=== PATIENT | male | born 1995 | race Caucasian/White ===

== ENCOUNTER 2016-09-10 12:03 | Emergency (ER) | payer MEDICAID, OTHER ==
[~2016-09-10] VITALS: Wt 75.0 kg
[2016-09-10] MEDS ORDERED: IBUPROFEN 800 MG TAB PO ONE (13:30)
--- NOTE | 2016-09-10 13:54 | ERD ---
ER Documentation Chief Complaint Date/Time DATE: 09/10/16 TIME: 13:51 Chief Complaint CHEST WALL PAIN FOR 2 MONTHS WITH COUGH FOR 2 MOS . NO DISTRESS HPI 21-year-old male with no past medical history who presents the emergency room with chest wall pain. He describes approximately 1 month of cough that is dry nonproductive and persistent that has been waxing and waning. Today he noted some chest wall pain that slightly radiated to his left shoulder. He denied any pleuritic pain, no fevers or chills, no exertional symptoms. No near syncope. He took an aspirin because he was scared and presented to the emergency room. He is asymptomatic, symptoms lasted approximately 1 hour. Patient has no family history of sudden no family history of early cardiac disease. He is otherwise well-appearing. ROS All systems reviewed and are negative except as per history of present illness. Medications Home Meds Active Scripts Albuterol Sulfate* (Ventolin HFA*) 18 Gm Hfa.aer.ad, 2 PUFF INHALATION Q4H, #1 INHALER Prov:ALICIA PASTOR MD 09/10/16 Ibuprofen* (Motrin*) 800 Mg Tab, 800 MG PO Q6H Y for PAIN AND OR ELEVATED TEMP, #30 TAB Prov:ALICIA PASTOR MD 09/10/16 PMhx/Soc Medical and Surgical Hx: pt denies Medical Hx, pt denies Surgical Hx Hx Alcohol Use: Yes Hx Substance Use: No Hx Tobacco Use: No Smoking Status: Never smoker FmHx Family History: No coronary disease, No diabetes Physical Exam Vitals Vital Signs Date Time Temp Pulse Resp B/P Pulse Ox O2 Delivery O2 Flow Rate FiO2 09/10/16 12:09 98.5 88 21 130/73 98 Physical Exam General: Well developed, well nourished, no acute distress Head: Normocephalic, atraumatic. Eyes: Pupils equally reactive, EOM intact ENT: Moist mucous membranes Neck: Supple, no lymphadenopathy Respiratory: Lungs clear bilaterally, no distress Cardiovascular: RRR, no murmurs, rubs, or gallops Abdominal: Soft, non-tender, non-distended, no peritoneal signs : Deferred MSK: No edema, no unilateral swelling, 5/5 strength Neurologic: Alert and oriented, moving all extremities, normal speech, no focal weakness, no cerebellar signs Skin: No rash Psych: Normal mood Results 24 hrs Current Medications Medications (Trade) Dose Ordered Sig/Maty Route PRN Reason Start Time Stop Time Status Last Admin Dose Admin Ibuprofen (Motrin) 800 mg ONCE ONCE PO 09/10/16 13:30 09/10/16 13:31 DC 09/10/16 13:43 Procedures/MDM EKG, MONITORS, & DIAGNOSTIC IMAGING: EKG: I reviewed and interpreted a 12-lead EKG. Rhythm: Normal sinus rhythm Ectopy: None Intervals: No abnormalities ST segments: No elevations or depressions T waves: No contiguous inversions Chest x-ray: I reviewed and interpreted a 1 view of the chest Mediastinum: No enlargement Cardiac silhouette: No cardiomegaly Airspace: Clear lung arizmendi bilaterally without evidence of pneumothorax Bones: No evidence of fracture MEDICAL DECISION MAKING: The patient presents with atypical chest pain. The patient has had cough for approximately 1 month. This is likely consistent with acute bronchitis. Very low clinical concern for pneumothorax. The patient meets the PERC RULE out criteria. Thus, less than 2% risk of pulmonary embolism with better alternative diagnosis. No indication for d-dimer or CT pulmonary angiogram at this time. The patient has no risk factors for cardiac disease, no exertional symptoms and a better alternative diagnosis. His HEART score is 0. I do not believe this is cardiac in nature. The patient does not require troponin, serial troponins, inpatient hospitalization. The patient was provided reassurance. The patient will be given nonsteroidal anti-inflammatories. I will check an EKG and chest x-ray. The patient has no family risk factors for early cardiac disease. He does not have any migratory pain or mid back pain to suggest dissection. If the patient' s be to start in his normal the patient has no pulse deficits he does not require CT imaging of the chest. He did not have migratory pain to his back. He is asymptomatic. ER COURSE: The patient's chest x-ray is normal. He continues to be well-appearing in the emergency department. The patient is safe for outpatient management. I did discuss return precautions including worsening symptoms. I kept the patient and/or family informed of laboratory and diagnostic imaging results throughout the emergency room course. DISPOSITION PLAN: We discussed follow up with the patient's primary care doctor within 24 to 48 hours as needed. We also discussed return to the emergency room for worsening symptoms or worsening condition. Discharge Medications: Motrin Departure Diagnosis: Primary Impression: Chest wall pain Condition: Good ALICIA PASTOR MD Sep 10, 2016 13:54
[2016-09-10] MEDS ORDERED: ALBU18HF INHALATION (14:02)
[2016-09-10] MEDS ORDERED: IBUP800T25 PO (14:02)
--- NOTE | 2016-09-10 14:29 | RADRPT ---
PROCEDURE: Chest x-ray CLINICAL INDICATION: Chest wall pain TECHNIQUE: Chest single view COMPARISON: None FINDINGS: The heart is normal in size. The pulmonary vessels are normal in caliber. The lungs are clear. Th e costophrenic angles are sharp. The visualized bony thorax is unremarkable. IMPRESSION: No acute cardiopulmonary disease. RPTAT: HH .Trent Beckman MD, Date Time Electronically viewed and signed by .Trent Beckman MD, MD on 09/10/2016 14:28 .W/
[2016-09-10 14:48] VITALS: BP 135/78; PULSE 73; RESP 17
== END 2016-09-10 14:48 | disposition home or self-care (01) ==
LOC: FTE 12:03
DX: R07.89 Other chest pain (principal)
CPT/HCPCS: 71010; 93005; Z7502; Z7610

== ENCOUNTER 2018-02-14 13:44 | Emergency (ER) | END 2018-02-14 16:21 | disposition home or self-care (01) ==

== ENCOUNTER 2018-09-16 20:09 | Emergency (ER) | payer SELFPAY ==
[~2018-09-16] VITALS: Wt 82.0 kg
[~2018-09-16 20:09] MED LIST: ALBU18HF INHALATION; CLOT30CR24 TOP; FLUC150T PO; IBUP800T48 PO
[2018-09-16 20:50] VITALS: BP 136/79; PULSE 85; RESP 19
== END 2018-09-16 21:36 | disposition left against medical advice (07) ==
LOC: FTE 20:09
DX: Z53.21 Procedure and treatment not carried out due to patient leaving prior to being seen by health care provider (principal)
CPT/HCPCS: 93005